=== PATIENT | male | born 1945 | race Caucasian/White ===

== ENCOUNTER 2020-02-18 14:49 | Outpatient (CLI) | payer MEDICARE | END 2020-02-18 14:50 | disposition critical access hospital (66) | LOC: EMS 14:49 | PROVIDERS: ATTEND Surgery | DX: R40.20 Unspecified coma (principal) | CPT/HCPCS: A0425; A0433 ==

== ENCOUNTER 2020-02-18 15:06 | Inpatient (IN) | payer MEDICARE ==
[2020-02-18] MEDS ORDERED: SODIUM CHLORIDE 0.9% 1,000 ML IV STA ×3 (15:12→16:23)
--- NOTE | 2020-02-18 15:15 | ED Physician Documentation ---
PD HPI ALTERED MENTAL STATUS - Stated complaint Stated Complaint: UNRESPONSIVE - History obtained from History obtained from: EMS - Additional information Additional information: This is a gentleman who was brought in by ambulance. Reportedly was last known normal last night, his roommate found him around 11 AM obtunded but reportedly just thought he was sleeping. Ambulance was called. They noted him to be obtunded. Vomiting. Blood sugar was in the 190s. They tried Narcan with no effect. On arrival he is intubated and unresponsive. No other history is available. No reported evidence of trauma. He did get etomidate and succinylcholine for the intubation and also received some Versed on route. No long-acting paralytics were given. Review of Systems Unable to obtain: AMS PD PAST MEDICAL HISTORY - Allergies Allergies/Adverse Reactions: Allergies Allergy/AdvReac Type Severity Reaction Status Date / Time Unable to Assess Allergy Verified 02/18/20 15:24 PD ED PE NORMAL - Vitals Vital signs reviewed: Yes - General General: Other (He is intubated and unresponsive with small pupils, no spontaneous respiratory activity.) - HEENT HEENT: Other (Small pupils, symmetric; Emesis around the mouth) - Cardiac Cardiac: RRR, No murmur - Respiratory Respiratory: Clear bilaterally - Abdomen Abdomen: Non tender - Back Back: No CVA TTP, No spinal TTP - Derm Derm: Normal color, Warm and dry - Extremities Extremities: No edema, No calf tenderness / cord - Neuro Eye Opening: None Motor: None Verbal: None GCS Score: 3 Results - Vitals Vitals: Vital Signs - 24 hr 02/18/20 02/18/20 02/18/20 15:05 15:26 15:35 Temperature 32.4 C L 32.4 C L Heart Rate 60 L 57 L 56 L Respiratory 20 L 20 L 14 L Rate Blood Pressure 104/79 H 93/48 84/44 O2 Saturation 100 100 100 02/18/20 02/18/20 02/18/20 15:39 15:54 16:14 Temperature 32.4 C L 32.3 C L 32 C L Heart Rate 56 L 55 L 57 L Respiratory 17 L 26 L 23 L Rate Blood Pressure 94/48 89/46 89/71 H O2 Saturation 100 100 100 02/18/20 02/18/20 02/18/20 16:15 16:26 16:30 Temperature 31.9 C L 31.9 C L Heart Rate 52 L 52 L 53 L Respiratory 27 L 28 L Rate Blood Pressure 87/41 90/39 O2 Saturation 100 100 02/18/20 02/18/20 02/18/20 16:45 17:00 17:08 Temperature 31.8 C L 31.8 C L Heart Rate 52 L 53 L 52 L Respiratory 28 L 29 L 27 L Rate Blood Pressure 86/45 89/44 101/47 H O2 Saturation 100 100 100 02/18/20 02/18/20 02/18/20 17:15 17:29 17:30 Temperature 31.8 C L 31.9 C L Heart Rate 52 L 52 L 52 L Respiratory 28 H 27 H 28 H Rate Blood Pressure 104/50 L 95/46 L 95/46 L O2 Saturation 100 99 99 02/18/20 17:35 Temperature 32 C L Heart Rate 56 L Respiratory 28 H Rate Blood Pressure 91/47 L O2 Saturation 99 Oxygen O2 Source Mechanical ventilator - EKG (time done) 1517 Rate: Rate (enter#) (60) Rhythm: NSR Kress: Normal Intervals: Other (LAFB) QRS: Normal Ischemia: Non specific changes - Labs Labs: Laboratory Tests 02/18/20 02/18/20 02/18/20 15:19 15:30 15:30 WBC 8.0 L RBC 4.80 Hgb 14.8 L Hct 46.1 MCV 96.0 MCH 30.8 MCHC 32.1 RDW 12.4 Plt Count 293 MPV 10.0 Neut # (Auto) 7.0 Lymph # (Auto) 0.6 L [place] # (Auto) 0.5 Eos # (Auto) 0.0 Baso # (Auto) 0.0 Absolute Nucleated RBC 0.00 Nucleated RBC % 0.0 PT INR Bld Gas Analysis Time Sample Site ABG pH ABG pCO2 ABG pO2 ABG HCO3 ABG Total CO2 ABG O2 Saturation ABG Base Excess Reji Test VBG pH VBG pCO2 VBG pO2 VBG HCO3 VBG Total CO2 VBG O2 Saturation VBG Base Excess Respiration Rate O2 Delivery Device Vent Mode FiO2 Tidal Volume PEEP Pressure Support Vent Sodium 139 Potassium 5.4 Chloride 104 Carbon Dioxide 11 L* Anion Gap 24.0 H BUN 26 H Creatinine 2.0 H Glucose 187 Lactic Acid Calcium 8.0 L Magnesium Total Bilirubin 0.8 L AST 79 H ALT 40 Alkaline Phosphatase 80 Total Creatine Kinase 5250 H* Total Protein 7.5 Albumin 3.2 Globulin 4.3 H Albumin/Globulin Ratio 0.7 L TSH Urine Color YELLOW Urine Clarity CLEAR Urine pH 6.0 Ur Specific [place] 1.015 Urine Protein TRACE Urine Glucose (UA) 250 H Urine Ketones NEGATIVE Urine Occult Blood LARGE H Urine Nitrite NEGATIVE Urine Bilirubin NEGATIVE Urine Urobilinogen 0.2 (NORMAL) Ur Leukocyte Esterase NEGATIVE Urine RBC 0-5 Urine WBC 0-3 Ur Epithelial Cells RARE Transitional Ur Squamous Epith Cells NONE SEEN Urine Bacteria None Seen Ur Microscopic Review INDICATED Urine Culture Comments INDICATED Nasal Adenovirus (PCR) Nasal B. parapertussis DNA (PCR) Nasal Coronavir 229E PCR Nasal Coronavir HKU1 PCR Nasal Coronavir NL63 PCR Nasal Coronavir OC43 PCR Nasal Enterovir/Rhinovir PCR Nasal Influenza B PCR Nasal Influenza A PCR Nasal Parainfluen 1 PCR Nasal Parainfluen 2 PCR Nasal Parainfluen 3 PCR Nasal Parainfluen 4 PCR Nasal RSV (PCR) Nasal B.pertussis DNA PCR Nasal C.pneumoniae (PCR) Thomas Human Metapneumo PCR Nasal M.pneumoniae (PCR) Nasal SARS-CoV-2 (PCR) Urine Opiates Screen NEGATIVE Ur Oxycodone Screen NEGATIVE Urine Methadone Screen NEGATIVE Ur Propoxyphene Screen NEGATIVE Ur Barbiturates Screen NEGATIVE Ur Tricyclics Screen NEGATIVE Ur Phencyclidine Scrn NEGATIVE Ur Amphetamine Screen NEGATIVE U Methamphetamines Scrn NEGATIVE U Benzodiazepines Scrn NEGATIVE Urine Cocaine Screen NEGATIVE U Cannabinoids Screen NEGATIVE Ethyl Alcohol < 5.0 02/18/20 02/18/20 02/18/20 15:30 15:30 15:30 WBC RBC Hgb Hct MCV MCH MCHC RDW Plt Count MPV Neut # (Auto) Lymph # (Auto) [place] # (Auto) Eos # (Auto) Baso # (Auto) Absolute Nucleated RBC Nucleated RBC % PT INR Bld Gas Analysis Time Sample Site ABG pH ABG pCO2 ABG pO2 ABG HCO3 ABG Total CO2 ABG O2 Saturation ABG Base Excess Reji Test VBG pH 7.010 L VBG pCO2 37.0 L VBG pO2 133.1 H VBG HCO3 9.1 L VBG Total CO2 10.3 L VBG O2 Saturation 97.8 H VBG Base Excess -21.4 L Respiration Rate O2 Delivery Device Vent Mode FiO2 Tidal Volume PEEP Pressure Support Vent Sodium Potassium Chloride Carbon Dioxide Anion Gap BUN Creatinine Glucose Lactic Acid 7.2 H* Calcium Magnesium Total Bilirubin AST ALT Alkaline Phosphatase Total Creatine Kinase Total Protein Albumin Globulin Albumin/Globulin Ratio TSH 2.30 Urine Color Urine Clarity Urine pH Ur Specific [place] Urine Protein Urine Glucose (UA) Urine Ketones Urine Occult Blood Urine Nitrite Urine Bilirubin Urine Urobilinogen Ur Leukocyte Esterase Urine RBC Urine WBC Ur Epithelial Cells Ur Squamous Epith Cells Urine Bacteria Ur Microscopic Review Urine Culture Comments Nasal Adenovirus (PCR) Nasal B. parapertussis DNA (PCR) Nasal Coronavir 229E PCR Nasal Coronavir HKU1 PCR Nasal Coronavir NL63 PCR Nasal Coronavir OC43 PCR Nasal Enterovir/Rhinovir PCR Nasal Influenza B PCR Nasal Influenza A PCR Nasal Parainfluen 1 PCR Nasal Parainfluen 2 PCR Nasal Parainfluen 3 PCR Nasal Parainfluen 4 PCR Nasal RSV (PCR) Nasal B.pertussis DNA PCR Nasal C.pneumoniae (PCR) Thomas Human Metapneumo PCR Nasal M.pneumoniae (PCR) Nasal SARS-CoV-2 (PCR) Urine Opiates Screen Ur Oxycodone Screen Urine Methadone Screen Ur Propoxyphene Screen Ur Barbiturates Screen Ur Tricyclics Screen Ur Phencyclidine Scrn Ur Amphetamine Screen U Methamphetamines Scrn U Benzodiazepines Scrn Urine Cocaine Screen U Cannabinoids Screen Ethyl Alcohol 02/18/20 02/18/20 02/18/20 15:30 15:40 15:49 WBC RBC Hgb Hct MCV MCH MCHC RDW Plt Count MPV Neut # (Auto) Lymph # (Auto) [place] # (Auto) Eos # (Auto) Baso # (Auto) Absolute Nucleated RBC Nucleated RBC % PT 17.0 H INR 1.6 H Bld Gas Analysis Time Sample Site ABG pH ABG pCO2 ABG pO2 ABG HCO3 ABG Total CO2 ABG O2 Saturation ABG Base Excess Reji Test VBG pH VBG pCO2 VBG pO2 VBG HCO3 VBG Total CO2 VBG O2 Saturation VBG Base Excess Respiration Rate O2 Delivery Device Vent Mode FiO2 Tidal Volume PEEP Pressure Support Vent Sodium Potassium Chloride Carbon Dioxide Anion Gap BUN Creatinine Glucose Lactic Acid Calcium Magnesium 2.6 Total Bilirubin AST ALT Alkaline Phosphatase Total Creatine Kinase Total Protein Albumin Globulin Albumin/Globulin Ratio TSH Urine Color Urine Clarity Urine pH Ur Specific [place] Urine Protein Urine Glucose (UA) Urine Ketones Urine Occult Blood Urine Nitrite Urine Bilirubin Urine Urobilinogen Ur Leukocyte Esterase Urine RBC Urine WBC Ur Epithelial Cells Ur Squamous Epith Cells Urine Bacteria Ur Microscopic Review Urine Culture Comments Nasal Adenovirus (PCR) NOT DETECTED Nasal B. parapertussis DNA (PCR) NOT DETECTED Nasal Coronavir 229E PCR NOT DETECTED Nasal Coronavir HKU1 PCR NOT DETECTED Nasal Coronavir NL63 PCR NOT DETECTED Nasal Coronavir OC43 PCR NOT DETECTED Nasal Enterovir/Rhinovir PCR NOT DETECTED Nasal Influenza B PCR NOT DETECTED Nasal Influenza A PCR NOT DETECTED Nasal Parainfluen 1 PCR NOT DETECTED Nasal Parainfluen 2 PCR NOT DETECTED Nasal Parainfluen 3 PCR NOT DETECTED Nasal Parainfluen 4 PCR NOT DETECTED Nasal RSV (PCR) NOT DETECTED Nasal B.pertussis DNA PCR NOT DETECTED Nasal C.pneumoniae (PCR) NOT DETECTED Thomas Human Metapneumo PCR NOT DETECTED Nasal M.pneumoniae (PCR) NOT DETECTED Nasal SARS-CoV-2 (PCR) NOT DETECTED Urine Opiates Screen Ur Oxycodone Screen Urine Methadone Screen Ur Propoxyphene Screen Ur Barbiturates Screen Ur Tricyclics Screen Ur Phencyclidine Scrn Ur Amphetamine Screen U Methamphetamines Scrn U Benzodiazepines Scrn Urine Cocaine Screen U Cannabinoids Screen Ethyl Alcohol 02/18/20 17:03 WBC RBC Hgb Hct MCV MCH MCHC RDW Plt Count MPV Neut # (Auto) Lymph # (Auto) [place] # (Auto) Eos # (Auto) Baso # (Auto) Absolute Nucleated RBC Nucleated RBC % PT INR Bld Gas Analysis Time 1705 Sample Site RIGHT RADIAL ABG pH 7.04 L* ABG pCO2 30 ABG pO2 491 H* ABG HCO3 7.9 L ABG Total CO2 8.8 L* ABG O2 Saturation 99 H ABG Base Excess -21.6 L Reji Test POSITIVE VBG pH VBG pCO2 VBG pO2 VBG HCO3 VBG Total CO2 VBG O2 Saturation VBG Base Excess Respiration Rate 16 O2 Delivery Device VENTILATOR Vent Mode SIMV FiO2 1.00 Tidal Volume 500 PEEP 5 Pressure Support Vent 10 Sodium Potassium Chloride Carbon Dioxide Anion Gap BUN Creatinine Glucose Lactic Acid Calcium Magnesium Total Bilirubin AST ALT Alkaline Phosphatase Total Creatine Kinase Total Protein Albumin Globulin Albumin/Globulin Ratio TSH Urine Color Urine Clarity Urine pH Ur Specific [place] Urine Protein Urine Glucose (UA) Urine Ketones Urine Occult Blood Urine Nitrite Urine Bilirubin Urine Urobilinogen Ur Leukocyte Esterase Urine RBC Urine WBC Ur Epithelial Cells Ur Squamous Epith Cells Urine Bacteria Ur Microscopic Review Urine Culture Comments Nasal Adenovirus (PCR) Nasal B. parapertussis DNA (PCR) Nasal Coronavir 229E PCR Nasal Coronavir HKU1 PCR Nasal Coronavir NL63 PCR Nasal Coronavir OC43 PCR Nasal Enterovir/Rhinovir PCR Nasal Influenza B PCR Nasal Influenza A PCR Nasal Parainfluen 1 PCR Nasal Parainfluen 2 PCR Nasal Parainfluen 3 PCR Nasal Parainfluen 4 PCR Nasal RSV (PCR) Nasal B.pertussis DNA PCR Nasal C.pneumoniae (PCR) Thomas Human Metapneumo PCR Nasal M.pneumoniae (PCR) Nasal SARS-CoV-2 (PCR) Urine Opiates Screen Ur Oxycodone Screen Urine Methadone Screen Ur Propoxyphene Screen Ur Barbiturates Screen Ur Tricyclics Screen Ur Phencyclidine Scrn Ur Amphetamine Screen U Methamphetamines Scrn U Benzodiazepines Scrn Urine Cocaine Screen U Cannabinoids Screen Ethyl Alcohol - Rads (name of study) CT head and C-spine Radiology: EMP read contemporaneously (degenerative changes without obvious acute disease.) 1 view chest x-ray Radiology: EMP read contemporaneously (Endotracheal tube 7 cm above the sandhya, right IJ line in the inferior superior vena cava. Question of appropriate placement of the gastric tube.) Procedures - Central Line Central Line Preparation: Unable to obtain consent, Time out completed, Ultrasound used, Sterile prep and drape Central line location: Right IJ Central line type: Triple lumen Central line aftercare: Chlorhexidine disc placed, Secured, Placement confirmed, No complications, Pt tolerated well PD MEDICAL DECISION MAKING - ED course ED course: This is a middle to older gentleman who presents by ambulance obtunded of unclear etiology. Intubated prior to arrival. I placed a central line. Work- up demonstrates no evidence of ischemia or head bleed on CT. Chest x-ray okay. Urine without signs of infection. He is profoundly Acidotic. He was hydrated aggressively with 3 L of crystalloid. Remained hypotensive and Levophed was begun. Asked social work to find next of kin. EKG is nonischemic. Spoke with Dr. Levy for admission at 4:49 PM. Also rewarming measures were undertaken. - Critical Care Time(min): 50 Time Includes: Direct patient care, Reassess patient, Document care, Coordinate care, Medical consult Data interpretation: Labs, Pulse ox Procedures included in critical care time: Peripheral IV Procedures excluded from critical care time: Central IV, EKG Departure - Departure Disposition: 66 [facility] DC/Xfer Clinical Impression: Acidosis, lactic Respiratory failure Qualifiers: Chronicity: acute Respiratory failure complication: hypoxia and hypercapnia Qualified Code(s): J96.01 - Acute respiratory failure with hypoxia Rhabdomyolysis Qualifiers: Rhabdomyolysis type: non-traumatic Qualified Code(s): M62.82 - Rhabdomyolysis Coma Qualifiers: Coma depth: Val coma 3-8 Coma timing: in the field (EMT or ambulance) Qualified Code(s): R40.2431 - [place] coma scale score 3-8, in the field [EMT or ambulance] Condition: Critical
[2020-02-18 15:27] LABS: MUDS CUTOFF CONCENTRATIONS CUTOFF CONC BELOW:
[2020-02-18 15:31] LABS: BILIRUBIN,URINE NEGATIVE (NEGATIVE); GLUCOSE, URINE (UA) 250 mg/dL (NEGATIVE); KETONES,URINE (UA) NEGATIVE (NEGATIVE); LEUKOCYTE ESTERASE, URINE NEGATIVE (NEGATIVE); NITRITE,URINE NEGATIVE (NEGATIVE); OCCULT BLOOD,URINE LARGE (NEGATIVE); PROTEIN,URINE TRACE mg/dL (NEGATIVE); UROBILINOGEN,URINE 0.2 (NORMAL) E.U./dL (NORMAL)
[2020-02-18 15:32] LABS: CLARITY,URINE CLEAR (CLEAR)
[2020-02-18 15:40] LABS: BASOPHILS % (AUTO) 0.1 %; EOSINOPHILS % (AUTO) 0.1 %; HGB - HEMOGLOBIN 14.8 g/dL (15.0-24.0); LYMPHOCYTES # (AUTO) 0.6 10^3/uL (2.5-10.5); LYMPHOCYTES % (AUTO) 7.1 %; MEAN CORPUSCULAR HEMOGLOBIN 30.8 pg (30.0-42.0); MEAN CORPUSCULAR HGB CONC 32.1 g/dL (32.0-36.0); MONOCYTES # (AUTO) 0.5 10^3/uL (0.0-3.5); MONOCYTES % (AUTO) 5.6 %; NEUTROPHILS % (AUTO) 86.6 %; PLT - PLATELET COUNT 293 10^3/uL (130-450); RED CELL DISTRIBUTION WIDTH 12.4 % (12.0-15.0)
[2020-02-18 15:45] LABS: AMPHETAMINE SCREEN,URINE NEGATIVE (NEGATIVE); BENZODIAZEPINES SCREEN, URINE NEGATIVE (NEGATIVE); COCAINE SCREEN URINE NEGATIVE (NEGATIVE); METHADONE SCREEN, URINE NEGATIVE (NEGATIVE); METHAMPHETAMINES SCREEN, URINE NEGATIVE (NEGATIVE); OPIATE SCREEN, URINE NEGATIVE (NEGATIVE); OXYCODONE SCREEN, URINE NEGATIVE (NEGATIVE); PROPOXYPHENE SCREEN, URINE NEGATIVE (NEGATIVE); TRICYCLIC ANTIDEPRESSANT,URINE NEGATIVE (NEGATIVE)
[2020-02-18 15:47] LABS: VBG BASE EXCESS -21.4 mmol/L (-2 - +2); VBG PH 7.01 (7.31-7.41); VBG PO2 133.1 mmHg (25-47); VBG TOTAL CO2 10.3 mmol/L (24-29)
[2020-02-18 15:49] LABS: BACTERIA,URINE None Seen /HPF (None Seen); EPITHELIAL CELLS,UR RARE Transitional /HPF (<= Few); RBC,URINE 0-5 /HPF (0-5); SQUAMOUS EPITHELIAL CELL,UR NONE SEEN (<= Few)
[2020-02-18 16:09] LABS: INR 1.6 (0.8-1.2)
--- NOTE | 2020-02-18 16:10 | XRAY Report ---
PROCEDURE: Chest 1 View X-Ray INDICATIONS: resp failure TECHNIQUE: One view of the chest was acquired. COMPARISON: None available FINDINGS: Surgical changes and devices: An endotracheal tube is seen, with the tip 7 cm above the sandhya. A ri ght-sided central line is seen, with the tip overlying the mid to inferior aspect of the superior ananya a cava, approximately 4 7 m above the cavoatrial junction. There is also a gastric tube seen, with th e tip not well seen on this study, yet potentially coiled over the gastroesophageal junction. Lungs and pleura: On the supine study, no large pneumothorax or large pleural effusions can be seen. No focal infiltrates are detected. Mediastinum: Mediastinal contours appear normal. Heart size is normal. Bones and chest wall: No suspicious bony lesions. Overlying soft tissues appear unremarkable. IMPRESSION: No acute abnormality is seen on this supine study. The tip of the endotracheal tube is seen 7 cm above the sandhya. The tip of the right-sided central line is seen overlying the mid to inferior aspect of the superior vena cava. The tip of the gastric tube is not well seen, it is potentially coiled overlying the gastroesophageal junction. Please consider short-term follow-up. Reviewed by: Chris Huggins MD on 02/18/2020 3:08 PM [facility] Approved by: Chris Huggins MD on 02/18/2020 3:08 PM [facility] Station ID: [id number]
[2020-02-18] MEDS ORDERED: fentaNYL 100 MCG/2 ML VIAL IVP STA (16:14)
[2020-02-18 16:17] LABS: ALBUMIN 3.2 g/dL (3.2-5.5); ALBUMIN/GLOBULIN RATIO 0.7 (1.0-2.2); ALKALINE PHOSPHATASE 80 IU/L (50-400); ALT ALANINE AMINOTRANSFERASE 40 IU/L (10-60); AST ASPARTATE AMINOTRANSFERASE 79 IU/L (10-42); BILIRUBIN,TOTAL 0.8 mg/dL (1.3-11.3); BUN - BLOOD UREA NITROGEN 26 mg/dL (6-20); CHLORIDE 104 mmol/L (101-111); GLUCOSE 187 mg/dL; SODIUM 139 mmol/L (135-145); TOTAL PROTEIN 7.5 g/dL (6.7-8.2)
[2020-02-18 16:18] LABS: CARBON DIOXIDE - CO2 11 mmol/L (21-32); CK- CREATINE KINASE 5250 IU/L (22-269)
--- NOTE | 2020-02-18 16:21 | CT Report ---
PROCEDURE: CERVICAL SPINE WO INDICATIONS: obtunded TECHNIQUE: Noncontrast 3 mm thick sections acquired from the skull base to the T4 level. Sagittal and coronal r eformats were then constructed. For radiation dose reduction, the following was used: automated exp osure control, adjustment of mA and/or kV according to patient size. COMPARISON: Correlation is made with the accompanying head CT as well as the chest x-ray, 02/18/2020 FINDINGS: Image quality: Excellent. Bones: No fractures or dislocations. Visualized superior ribs are intact. Degenerative changes are seen, with moderate to severe disc space narrowing at C5-C6 and C6-C7. Focal degenerative change can also be seen involving the C1-C2 interface anteriorly. Milder degenerative c hanges are seen elsewhere. Soft tissues: Prevertebral soft tissues are normal in thickness. No paravertebral hematomas. No ap ical pneumothoraces. The patient is intubated, with the tip within the distal trachea. A orogastric tube is seen, with the tip within the esophagus. There is a right-sided central line, with the tip within the venous system . IMPRESSION: Cervical spine degenerative changes, without a fracture seen. Tubes and lines are seen. Reviewed by: Chris Huggins MD on 02/18/2020 3:20 PM [facility] Approved by: Chris Huggins MD on 02/18/2020 3:20 PM [facility] Station ID: [id number]
--- NOTE | 2020-02-18 16:22 | CT Report ---
PROCEDURE: HEAD WO INDICATIONS: obtunded TECHNIQUE: Noncontrast 4.5 mm thick angled axial sections acquired from the foramen magnum to the vertex. For r adiation dose reduction, the following was used: automated exposure control, adjustment of mA and/or kV according to patient size. COMPARISON: Correlation is made with the accompanying chest x-ray and cervical spine CT, 02/18/2020 FINDINGS: Image quality: Excellent. CSF spaces: Basal cisterns are patent. No extra-axial fluid collections. Ventricles are normal in size and shape. Brain: No midline shift. No intracranial masses or hemorrhage. Walker-white matter interface is norm al. Skull and face: Calvarium and visualized facial bones are intact, without suspicious lesions. Sinuses: Visualized sinuses and mastoids are clear. IMPRESSION: No intracranial hemorrhage is seen. No significant intracranial abnormality is seen. Reviewed by: Chris Huggins MD on 02/18/2020 3:21 PM [facility] Approved by: Chris Huggins MD on 02/18/2020 3:21 PM [facility] Station ID: [id number]
[2020-02-18] MEDS ORDERED: LACTATED RINGERS 1,000 ML IV STA (16:34)
[2020-02-18 17:00] LABS: C. PNEUMONIAE- RESP PCR PANEL NOT DETECTED
[2020-02-18 17:09] LABS: ABG BASE EXCESS -21.6 mmol/L (-4.0-2.0); ABG HCO3 7.9 mmol/L (16.0-24.0); ABG OXYGEN SATURATION 99 % (94-98); ABG PCO2 30 mmHg (27-41); ALLEN TEST POSITIVE
[2020-02-18 17:10] LABS: ABG PH 7.04 (7.29-7.45); ABG PO2 491 mmHg (54-95); ABG TCO2 8.8 MMOL/L (20.0-28.0)
[2020-02-18] MEDS ORDERED: SODIUM CHLORIDE 0.9% 500 ML IV ONE ×2 (18:55→23:47)
[2020-02-18 19:57] LABS: ABG PCO2 26 mmHg (34-45); ABG PO2 105 mmHg (80-100)
[2020-02-18 19:58] LABS: ABG BASE EXCESS -22.1 mmol/L (-2.0-3.0); ABG OXYGEN SATURATION 97 % (94-98)
[2020-02-18 20:01] LABS: ABG PH 7.05 (7.35-7.45); ABG TCO2 7.8 MMOL/L (21.0-29.0)
--- NOTE | 2020-02-18 20:55 | XRAY Report ---
PROCEDURE: Chest for Line Placement INDICATIONS: Line placement TECHNIQUE: One view of the chest was acquired. COMPARISON: 02/18/2020 chest radiograph FINDINGS: Surgical changes and devices: Right IJ central line projects over the upper SVC. Advancement may be n eeded depending on the clinical application of this line. Endotracheal and enteric tubes are in appro priate position. Lungs and pleura: No pleural effusions or pneumothorax. Lungs are clear. Mediastinum: Mediastinal contours appear normal. Heart size is normal. Bones and chest wall: No suspicious bony lesions. Overlying soft tissues appear unremarkable. IMPRESSION: Right IJ central line projects over the upper SVC. Reviewed by: Zeus Steward MD on 02/18/2020 8:53 PM PST Approved by: Zeus Steward MD on 02/18/2020 8:53 PM PST Station ID: [id number]
[2020-02-18] MEDS ORDERED: SODIUM CHLORIDE 0.9% 500 ML IV PRN (20:56)
[2020-02-18] MEDS: PROPOFOL 500 MG/50 ML 500 MG/50 ML VIAL IV SCH (20:57)
--- NOTE | 2020-02-18 21:05 | CONSULTATION NOTE ---
Referring Provider Name of Referring Provider:: Dr. Levy Consult Date: 02/18/20 Chief Complaint - Chief Complaint Chief Complaint: Shock/Pressors; requesting Central & Arterial lines History of Present Illness - Admitted From Admitted From:: Home - History Obtained From Records Reviewed: EMR History obtained from: EMR and Hospitalist Exam Limitations: Intubated - History of Present Illness HPI Comment/Other: Please see hospitalist note. Patient found unresponsive by friend, resuscitated and transferred to the ICU intubated and currently on pressors. Hospitalist service requesting central venous catheter placement after emergency placed central line was inadvertently dislodged. Moreover arterial line placement requested for continued hemodynamic monitoring. History - Past Medical History Other Past Medical History: pt unable to respond at this time Meds/Allgy - Allergies Allergies/Adverse Reactions: Allergies Allergy/AdvReac Type Severity Reaction Status Date / Time Unable to Assess Allergy Verified 02/18/20 15:24 Review of Systems - All Other Systems All Other Systems: reports: Other (Unable to ascertain given the patient's unresponsiveness; intubated and on pressors.) Exam - Vital Signs Vital Signs: Vital Signs x48h Temp Pulse Pulse Resp BP BP Pulse Ox 02/18/20 19:15 55 L 02/18/20 19:00 32.8 C L 55 L 27 H 95/40 L 96 02/18/20 18:55 54 L 27 H 94/47 L 98 02/18/20 18:40 32.5 C L 52 L 27 H 95/43 L 98 02/18/20 18:34 56 L 27 H 86/44 L 98 02/18/20 18:15 57 L 29 H 73/43 L 99 02/18/20 18:05 32.3 C L 53 L 29 H 93/40 L 97 02/18/20 17:50 32.1 C L 55 L 26 H 92/42 L 98 02/18/20 17:42 32 C L 54 L 29 H 95/42 L 99 02/18/20 17:35 32 C L 56 L 28 H 91/47 L 99 02/18/20 17:30 52 L 28 H 95/46 L 99 02/18/20 17:29 31.9 C L 52 L 27 H 95/46 L 99 02/18/20 17:15 31.8 C L 52 L 28 H 104/50 L 100 02/18/20 17:08 31.8 C L 52 L 27 L 101/47 H 100 02/18/20 17:00 31.8 C L 53 L 29 L 89/44 100 02/18/20 16:45 52 L 28 L 86/45 100 02/18/20 16:30 31.9 C L 53 L 28 L 90/39 100 02/18/20 16:26 31.9 C L 52 L 27 L 87/41 100 02/18/20 16:15 52 L 02/18/20 16:14 32 C L 57 L 23 L 89/71 H 100 02/18/20 15:54 32.3 C L 55 L 26 L 89/46 100 02/18/20 15:39 32.4 C L 56 L 17 L 94/48 100 02/18/20 15:35 56 L 14 L 84/44 100 02/18/20 15:26 32.4 C L 57 L 20 L 93/48 100 02/18/20 15:05 32.4 C L 60 L 20 L 104/79 H 100 - Physical Exam General Appearance: positive: Other (Unresponsive with endotracheal tube in place) Eyes Bilateral: positive: Other (Deferred) ENT: positive: Other (Place for orogastric tube by me given tube placed by ER was coiled within the esophagus. This was ultimately confirmed for appropriate placement with postprocedural chest x-ray confirming line placement. Positive return of feculent/bilious output.) Respiratory: positive: Wheezes, Rales, Rhonchi Abdomen: positive: No distention, Other (Borborygmi noted in the left upper quadrant after placement of orogastric tube by me.) Extremities: positive: Other (Thready bilateral radial pulses. Palpable femoral pulses with good capillary refill bilateral lower extremities.) Conclusion/Plan - Diagnosis Diagnosis: 1. Shock, necessitating pressors. 2. Hemodynamically ability. 3. Multiorgan system failure. 4. Need for reliable central venous access and hemodynamic monitoring - Plan Plan: Given ongoing pressor support and need for reliable hemodynamic monitoring, and the urgent nature of this intervention, will proceed with ultrasound-guided internal jugular venous access as well as attempted radial arterial line placement. Informed consent was not able to be obtained secondary to the patient's unresponsiveness. No family was available from home consent could be obtained. Please see procedural reports under separate cover. Please note that all lines were confirmed for placement where applicable radiographically including the orogastric tube that was placed by me which was noted within the stomach. Please note that voice recognition software was used to transcribe this note and inadvertent errors might persist in spite of review and editing. I am obliged to you for your attention. I am thankful to you for allowing me to participate with you in this care of this patient. - Lab Results Fish Bones: 02/19/20 11:31 02/19/20 11:31
--- NOTE | 2020-02-18 21:13 | OPERATIVE REPORT ---
Operative Report - General Admit Date: 02/18/20 Procedure Date: 02/18/20 Planned Procedure: Procedure planned 1. Ultrasound guided arterial access, right radial 2. Right radial arterial line placement Pre-Op Diagnosis: Shock; Pressor Support; Need for HD monitoring Procedure Performed: Procedure performed: 1. Attempted ultrasound guided arterial access, right radial 2. Right femoral arterial access 3. Right femoral arterial line placement 4. Modified seldinger technique Post Op Diagnosis: SAME; Successful Right femoral arterial line placement - Procedure Note Primary Surgeon: Param Secondary Surgeon: RAYMOND Anesthesia Provider: NONE Anesthesia Technique: General ET tube Pathology: NONE Indications: See consultation Findings: See below Complications: NONE - Other Other Information/Narrative: Radial and FEMORAL arterial line catheter placement Procedure performed: 1. Attempted ultrasound guided right then left radial arterial catheter placement 2. Successful placement right femoral arterial catheter placement INTRAOPERATIVE FINDINGS: First the right hand was performed for Reji test with no concern for incomplete/incompetent palmar arch. No palpable radial pulse was ascertained, ultrasound was attempted which did indeed show a vasoconstricted right radial artery which was attempted however unsuccessfully accessed after which this was deferred following single attempt. The right side was thereafter evaluated however this similarly was confirmed for Reji's test with no obvious compromise of the palmar arch however a vasoconstricted right radial artery was noted and given the patient's active shock, on pressor support, we deferred and further attempt at radial access on the right at this time, cap refill was intact bilateral upper extremities. Thereafter we proceeded with RIGHT femoral arterial line access using a 22 Italian kit by modified Seldinger technique with single stick and no complication. Good waveform achieved. Preoperative diagnosis: 1. Hypovolemic shock 2. Pressor support 3. Need for additional Hemodynamic monitoring. Preoperative diagnosis: 1. Hypovolemic shock 2. Pressor support 3. Need for additional Hemodynamic monitoring. 4. Successful placement of RIGHT FEMORAL arterial line. PROCEDURAL REPORT Please see above for attempts made for the left and right upper extremity which were deferred. Thereafter we opted to proceed with the RIGHT femoral artery for access given the patient who is in extremis with hypotension vasoconstriction and under resuscitation as noted on venous access and ultrasound guidance. At this time we spoke to the obtain consent. Time out was called and a greed to by all in the room. Please note secondary to the urgency of the procedure written/verbal informed consent was NOT obtained and indications given exigency and presentation were announced and witnessed by nurse attendant in room. The ultrasound probe was draped with a sterile sleeve. Pulsatile structures were noted for RIGHT femoral artery. We proceeded to access the right femoral artery by ultrasound guidance with positive arterial blood return. The catheter was easily placed over the wire by modified Seldinger technique. Appropriate arterial waveform was appreciated with no complication. There was no complication after single for RIGHT femoral arterial access. At the conclusion of this case we reevaluated bilateral upper extremities given the significant vasoconstriction of the right radial artery and attempted access and patient was noted for good cap refill with no complication to both hands at the conclusion of this procedure. The patient tolerated the procedure well for which there was no complication. All counts for sponges, needles, instruments were correct at the conclusion of this operative intervention. Please note that voice recognition software was used to transcribe this note and inadvertent errors might persist in spite of review and editing. I am obliged to you for your attention. I am thankful to you for allowing me to participate with you in this care of this patient.
[2020-02-18] MEDS ORDERED: SODIUM CHLORIDE 0.9% 1,000 ML IV ONE (21:20)
--- NOTE | 2020-02-18 21:20 | OPERATIVE REPORT ---
Operative Report - General Admit Date: 02/18/20 Procedure Date: 02/18/20 Planned Procedure: 1. Right internal jugular venous access 2. Ultrasound-guided vascular access 3. Modified Seldinger technique 4. Right internal jugular central venous TLC placement Pre-Op Diagnosis: Shock; pressor support; need for central venous access Procedure Performed: 1. Right internal jugular venous access 2. Ultrasound-guided vascular access 3. Modified Seldinger technique 4. Right internal jugular central venous TLC placement Post Op Diagnosis: Same; successful placement of right internal jugular central venous TLC - Procedure Note Primary Surgeon: Param Secondary Surgeon: RAYMOND Anesthesia Provider: NONE Anesthesia Technique: General ET tube Indications: See consult note. Findings: See below. Internal jugular relatively collapsed requiring Trendelenburg to cannulate, no complication. Complications: NONE - Other Other Information/Narrative: INTRAOPERATIVE FINDINGS: Right internal jugular was noted ultrasonographically. It was passed for the guidewire without any complication, which was confirmed by ultrasound imaging. The catheter ultimately was placed at the junction between the SVC and the atria of the atriocaval junction without any complication as confirmed by postoperative x-ray. Again, postoperative radiography confirmed placement. Patient tolerated the procedure well for which there was no complication. The port flushed easily, it aspirated well across all 3 ports. Preoperative diagnosis: 1. Hypovolemic shock 2. Pressor support 3. Need for additional IV access Postoperative diagnosis: 1. Hypovolemic shock 2. Pressor support 3. Need for additional IV access 4. Successful placement of right internal jugular triple-lumen catheter PROCEDURAL REPORT The patient was prepped for Right neck and chest in the usual sterile fashion. Time out was called and agreed to by all in the room. Please note secondary to the urgency of the procedure verbal/written informed consent was NOT obtained as patient was intubated and unresponsive and there were no family to contact; however we did indeed reiterate and express the exigency of the circumstance prior to proceeding, as witnessed by nurse attendant in room. The ultrasound probe was draped with a sterile sleeve, and internal jugular was noted. The patient was placed in Trendelenburg, and the vein was cannulated using the introducer needle without any complication. There was venous return. The wire wa s easily passed through the introducer needle without any complication. The wire placement was confirmed Ultrasonographically. At this time, the wire was secured after the needle was removed. Thereafter, we dilated the tract after having incise the skin to accommodate. This was achieved without any complication. The triple-lumen catheter was already flushed and once the dilator was removed over the wire, the triple-lumen catheter was placed and appropriately positioned anticipating tip at the atriocaval junction. We had easy return of blood x3 ports which flushed without any complication as well. Please note the patient was performed for postoperative x-ray which confirmed placement at the atriocaval junction. The patient tolerated the procedure well for which there was no complication. All counts for sponges, needles, instruments were correct at the conclusion of this operative intervention. Post-op XR was reviewed without any deviation.
[2020-02-18] MEDS ORDERED: FOLIC ACID 5 MG/1 ML 10ML MDV ONE (22:12)
[2020-02-18] MEDS ORDERED: THIAMINE 100 MG/1 ML 2 ML MDV ONE (22:12)
[2020-02-18] MEDS ORDERED: SODIUM BICARBONATE 8.4% 50 MEQ/50 ML VIAL ONE (22:13)
[2020-02-18] MEDS ORDERED: DEXTROSE 5% 1,000 ML IV ONE (22:20)
[2020-02-18] MEDS ORDERED: D5.45NS W/20 MEQ KCL 1,000 ML IV ONE (22:20)
[2020-02-18] MEDS: SODIUM BICARBONATE 150 MEQ in DEXTROSE 5% 1,000 ML IV SCH (22:31)
[2020-02-18] MEDS: MULTIVITAMIN 10 ML, THIAMINE INJ 100 MG, FOLIC ACID INJ 1 MG in D5.45NS W/20 MEQ KCL 1,... IV SCH (22:41)
[2020-02-18] MEDS: SODIUM CHLORIDE FLUSH 0.9% 10 ML SYRINGE IVP PRN ×2 (22:47→22:50)
--- NOTE | 2020-02-18 23:21 | HISTORY & PHYSICAL EXAMINATION ---
DATE OF SERVICE: 02/18/2020 Physician: Linh Levy MD HISTORY OF PRESENT ILLNESS: This is a 74-year-old white male who presented to the emergency room as a Marco A Wu until his friend gave some past medical history, speaking to a mental health social worker who reached out to him. Apparently, the patient is a 74-year-old white male who used to live in [place] with his and the in April of this year. There are several children from whom he is estranged. After the 's , he had increased stress and became homeless. A friend who lives on [facility] offered for this man to come live with him, which the patient did, starting in May or June of this year. He has been going to the [place] for history of a mental disorder. 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 The patient was apparently normal yesterday; however, did not come out of his room for dinner yesterday and when the friend went to see him, the patient was sitting at the edge of his bed and staring at one point on the floor and did not respond when spoken to. The friend assumed he was having a bad day and left him alone. The friend then checked on him at 01:30 overnight, and saw that the patient was sleeping on top of his bed with his clothes on. This morning, when the patient was next checked on by the friend, he was found on the ground and the friend poked him with his cane and he did move slightly, but did not awaken. The friend then called 911 and EMS arrived and found him to be unresponsive, hypothermic with a temperature of 32 degrees centigrade, heart rate was 50, blood pressure was also very low and he was intubated at the scene. Narcan was given and had no effect. In the ER, his heart rate was found to be 50, blood pressure 90/40 and he was started on IV fluids and Levophed drip. He had already been intubated at the scene and was put on a ventilator in the ED. He underwent a CT of the head and C-spine, which were negative. A blood gas showed a pH of 7.01 and other labs were abnormal with a lactic acid of 7.2, total CK of 5250 and creatinine of 2, drug tox screen was negative. The patient is being admitted to the ICU in a coma, hypothermic, in shock, requiring a Levophed drip. PAST MEDICAL HISTORY: Unknown, except the friend offered that the patient goes to the [place] for a psych disorder. 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 The friend denied that the patient has a history of alcohol abuse or smokes anything. He lives with his friend as described above, for the past 8 months. The 2 men each other's temperatures twice a day and have kept to isolation precautions during the COVID pandemic. FAMILY HISTORY: This is not known. REVIEW OF SYSTEMS: This was obtained from the ED provider and SW who spoke to the friend. There is no other review of systems possible since he has never been at this hospital before and he is not communicative in a coma. PHYSICAL EXAM GENERAL: Middle-aged white male who is supine, intubated and did receive one dose of sedative and is currently sedated on the vent. VITAL SIGNS: Blood pressure now is 90/50 on Levophed drip and IV fluids. Heart rate is 90 in sinus rhythm. HEENT: Reveals eyes are closed, ET tube in place. NECK: No JVD in a supine position. CHEST: Clear anteriorly. HEART: Normal heart sounds without murmur. ABDOMEN: Not obese and soft. EXTREMITIES: No clubbing, cyanosis or edema. NEUROLOGIC: Obtunded and sedated/comatose. LABORATORY DATA: Lactic acid 7.2. CK 5250. Creatinine 2.0. Troponin less than 2. Respiratory COVID panel was negative for COVID and other viruses. His drug toxicology screen was negative. Urine was unremarkable. WBC, Hgb and plt count normal. IMAGING: Chest x-ray: No active pulmonary disease and CVP was in place. ET tube was 7 cm above the sandhya. NG tube is coiled in the esophagus. IMPRESSION/DIAGNOSES 1. Coma with unknown etiology. 2. Hypothermia. 3. Shock. 4. Lactic acidosis with no obvious source of infection, white blood count was normal, and he is not a diabetic. 5. Rhabdomyolysis. 6. Acute kidney injury. PLAN: Continue with ICU care, as this patient is in critical status. Begin a warming unit. Continue with aggressive IV replacement of crystalloid fluids and Levophed, for blood pressure support. Obtain an Echo to evaluate the heart structurally. Follow his CMP daily, monitor lactic acid every 3 hours, continue ventilator support and monitor blood gases for management. He may need bicarb, if the next ABG does not show improvement in pH. When he presented to the ICU, his CVP line was pulled out inadvertently during transfer. Therefore, we will request a new CVP placement, Arterial line placement, and NG tube repositioning, from the general surgeon. ET tube will also be adjusted, recheck all line positions by x-ray. Blood cultures were sent from the ER. Currently no obvious source of infection is noted and WBC is normal. No empiric antibiotics have been started yet. A brain MRI is planned to evaluate the coma (today is Thursday evening and we don't have MRI here until Thu morningh). He received 1 dose of sedative, and may need a sedative drip while on the vent. If he does not awaken, after sedation is off, this bodes a poor prognosis. Any additional information about him would be helpful and social workers are attempting to reach the children. CODE STATUS: His wishes are unknown; therefore, he will be a FULL CODE. DEEP VENOUS THROMBOSIS PROPHYLAXIS: SCDs. ATTESTATION: Patient is expected to be discharged or transferred to another facility within 96 hours: Yes. CRITICAL CARE TIME SPENT: 45 min. TD: 02/18/2020 20:10 ASA
[2020-02-19] MEDS: SODIUM CHLORIDE FLUSH 0.9% 10 ML SYRINGE IVP PRN ×6 (00:05→12:03)
[2020-02-19 00:29] LABS: ABG HCO3 6.2 mmol/L (22.0-26.0); ABG PO2 109 mmHg (80-100)
[2020-02-19 00:30] LABS: ABG BASE EXCESS -23.6 mmol/L (-2.0-3.0); ABG OXYGEN SATURATION 96 % (94-98)
[2020-02-19 00:34] LABS: ABG PCO2 25 mmHg (34-45); ABG PH 7.01 (7.35-7.45)
[2020-02-19] MEDS ORDERED: DEXTROSE 5% 250 ML IV ONE (00:58)
[2020-02-19 03:12] LABS: BASOPHILS # (AUTO) 0.1 10^3/uL (0.0-0.1); BASOPHILS % (AUTO) 0.5 %; EOSINOPHILS # (AUTO) 0.1 10^3/uL (0.0-0.7); EOSINOPHILS % (AUTO) 0.3 %; HGB - HEMOGLOBIN 13.9 g/dL (14.0-18.0); LYMPHOCYTES # (AUTO) 1.4 10^3/uL (1.5-3.5); LYMPHOCYTES % (AUTO) 7.6 %; MEAN CORPUSCULAR HEMOGLOBIN 31.2 pg (27.0-31.0); MEAN CORPUSCULAR VOLUME 97.3 fL (80.0-94.0); MEAN PLATELET VOLUME 9.9 fL (7.4-11.4); MONOCYTES # (AUTO) 0.8 10^3/uL (0.0-1.0); MONOCYTES % (AUTO) 4.7 %; NEUTROPHILS # (AUTO) 15.4 10^3/uL (1.5-6.6); PLT - PLATELET COUNT 337 10^3/uL (130-450); RED BLOOD COUNT 4.46 10^6/uL (4.70-6.10); RED CELL DISTRIBUTION WIDTH 12.7 % (12.0-15.0); WHITE BLOOD COUNT 17.9 x10^3/uL (4.8-10.8)
[2020-02-19] MEDS: PROPOFOL 500 MG/50 ML 500 MG/50 ML VIAL IV SCH ×3 (03:20→15:25)
[2020-02-19 03:25] LABS: ABG BASE EXCESS -23.5 mmol/L (-2.0-3.0); ABG HCO3 6.1 mmol/L (22.0-26.0); ABG OXYGEN SATURATION 97 % (94-98); ABG PO2 109 mmHg (80-100)
[2020-02-19 03:33] LABS: ALBUMIN 2.7 g/dL (3.2-5.5); ALBUMIN/GLOBULIN RATIO 0.8 (1.0-2.2); BILIRUBIN,TOTAL 1.7 mg/dL (0.2-1.0); TOTAL PROTEIN 5.9 g/dL (6.7-8.2)
[2020-02-19 03:35] LABS: CALCIUM 6.3 mg/dL (8.5-10.3)
[2020-02-19 03:35] LABS: ABG PCO2 24 mmHg (34-45); ABG PH 7.02 (7.35-7.45); ABG TCO2 6.8 MMOL/L (21.0-29.0)
[2020-02-19] MEDS ORDERED: INSULIN REGULAR HUMAN 300 UNIT/3 ML VIAL IVP ONE (03:42)
[2020-02-19] MEDS ORDERED: DEXTROSE 10% 250 ML IV STA (03:42)
[2020-02-19] MEDS ORDERED: CALCIUM GLUCONATE 2,000 MG in SODIUM CHLORIDE 0.9% 100ML 100 ML IV ONE (03:43)
[2020-02-19] MEDS ORDERED: ALBUTEROL NEB 2.5 MG/3 ML INH ONE (03:45)
[2020-02-19] MEDS ORDERED: CEFEPIME 2 GM in SODIUM CHLORIDE 0.9% MINIBAG 100 ML IV SCH ×2 (04:00→09:00)
[2020-02-19] MEDS ORDERED: SODIUM CHLORIDE 0.9% 500 ML IV ONE (04:38)
[2020-02-19] MEDS ORDERED: VANCOMYCIN INJ 1.25 GM in SODIUM CHLORIDE 0.9% 250 ML IV SCH (05:00)
[2020-02-19] MEDS: metroNIDAZOLE 500 MG/100 ML 500 MG/100 ML BAG IV SCH ×2 (05:01→12:08)
[2020-02-19 07:36] LABS: CREATININE 3.4 mg/dL (0.6-1.2)
[2020-02-19 07:37] LABS: ABG BASE EXCESS -26.3 mmol/L (-2.0-3.0); ABG HCO3 5.4 mmol/L (22.0-26.0); ABG OXYGEN SATURATION 96 % (94-98); ABG PCO2 27 mmHg (34-45); ABG PO2 105 mmHg (80-100)
[2020-02-19 07:40] LABS: ABG PH 6.92 (7.35-7.45); ABG TCO2 6.2 MMOL/L (21.0-29.0)
[2020-02-19 07:41] LABS: CALCIUM 6.4 mg/dL (8.5-10.3)
[2020-02-19] MEDS ORDERED: VANCOMYCIN INJ 1 GM in SODIUM CHLORIDE 0.9% 250 ML IV SCH (08:00)
[2020-02-19] MEDS ORDERED: MULTIVITAMIN 10 ML, THIAMINE INJ 100 MG, FOLIC ACID INJ 1 MG in D5.45NS W/20 MEQ KCL 1,... IV SCH (09:00)
--- NOTE | 2020-02-19 09:01 | CT Report ---
PROCEDURE: Abdomen/Pelvis WO INDICATIONS: sepsis, unknown site. ?abscess, ischemia TECHNIQUE: Noncontrast 5 mm thick sections acquired from the diaphragms to the symphysis. 5 mm coronal and sagi ttal reformats were then performed. For radiation dose reduction, the following was used: automated exposure control, adjustment of mA and/or kV according to patient size. COMPARISON: None. FINDINGS: Image quality: Excellent. ABDOMEN: Lung bases: There is a small right-sided pleural effusion. Dependent consolidation is seen at the berenice g bases. Heart size is normal. Solid organs: Liver and spleen are normal in size. Gallbladder wall does not appear thickened. P ancreas is normal in contours. No adrenal nodules. Kidneys are normal in size, without hydronephros is or nephrolithiasis. Peritoneum and bowel: The tip of nasogastric tube is seen within the mid stomach. Generalized wall t hickening can be seen of the colon. Mild surrounding inflammatory changes are seen. Prominent loops o f small bowel are seen, which measure up to 2.8 cm. Small amount of fluid can be seen along the leave s of the mesentery, with trace fluid layering dependently within the pelvis. No free fluid or air. Nodes and vessels: No retroperitoneal or mesenteric adenopathy by size criteria. Aorta and inferior vena cava are normal in caliber. Miscellaneous: No ventral hernias. PELVIS: Genitourinary: A Thomas catheter is seen, decompressing the urinary bladder. Miscellaneous: No inguinal adenopathy. Bilateral fat-containing inguinal hernias are seen. A right femoral artery line is seen, with the tip within the right external iliac artery. Bones: No suspicious bony lesions. No vertebral body compression fractures. Focal L4-L5 and L5-S1 degenerative change is seen. Milder degenerative changes are seen elsewhere. Mild levoconvex scoliot ic curvature is seen. IMPRESSION: Generalized wall thickening can be seen in the colon and prominent loops of small bowel are seen. The re is a small amount of free fluid along the leaves of the mesentery and layering dependently within the pelvis Colitis/enteritis is suspected. To the limits of this study performed without IV contrast, no findings of an abscess can be seen. Depending consolidation is seen at the lung bases. Differential diagnosis includes atelectasis and de pendent infiltrates. Please consider aspiration pneumonia. Small right-sided pleural effusion. Right groin line, with the tip seen within the right external iliac artery. Incidental note is made of: Thomas catheter Bilateral fat-containing inguinal hernias Focal lower lumbar spine degenerative change Levoconvex scoliotic curvature Reviewed by: Chris Huggins MD on 02/19/2020 7:59 AM [facility] Approved by: Chris Huggins MD on 02/19/2020 7:59 AM [facility] Station ID: [id number]
--- NOTE | 2020-02-19 09:08 | PROVIDER PROGRESS NOTE ---
Cigar Bander Note - Cigar Bander Note Cigar Bander Note: The patient's blood pressure earlier in the night stayed low with mean arterial pressure of 58 as a result Levophed was titrated up and maxed. The patient was given a total of 2 L boluses of normal saline in the course of the night. A banana bag was ordered at 100 mils per hour. Patient's ABG earlier in the evening around 8 PM came back with a pH of 7.05, PCO2 26, bicarb 7.0, PO2 105. As a result the patient was started on a bicarbonate drip at 100 mils an hour. Throughout the course of the night the patient was on at least a total of 300 mils of fluids an hour. This was in addition to the 2 L of normal saline boluses given. The patient had serial ABGs done at 4-hour intervals through the cause of the night with his pH continuing to decrease. The last pH at 7:24 am on 02/19/20 was 6.92, PCO2 27, PO2 105 and bicarb 5.4. Throughout the night the patient's lactic acid stayed in the range of 7.0-8.6 despite the bicarbonate drip. Repeat CBC showed a spike of the patient's white blood cell count from 8-17. The patient was started on vancomycin, cefepime and Flagyl. The patient's creatinine worsened from 2.0-3.4. Despite a total of approximately 5 L of IV fluids given there was only reported urine output of 565. I spoke to the patient's son by name Bry Jones at the beginning and the end of the night and updated him on the patient's clinical condition. Diagnosis Septic shock: Infectious source not yet identified but a GI origin suspected. Blood cultures had been drawn earlier. Patient is on vancomycin, cefepime and Flagyl. Patient's lactic acid is 8.2. Acute kidney injury: Likely secondary to ATN Patient is currently receiving a total of approximately 300 mils of fluids an hour. These include a banana bag at 100 mils an hour,A sodium bicarbonate solution at 100 mils an hour, Levophed, and the above-mentioned IV antibiotics. Hyperkalemia: The patient's potassium was 7.2. The patient was given insulin 10 units IV, albuterol nebulizer 10 mg And 2 g of calcium gluconate. Potassium recheck was 5.5. Plan will be to repeat the patient's BMP, CBC, lactic acid and ABG at noon. Elevated liver function tests: Likely secondary to shock liver. Metabolic acidosis: This is likely secondary to septic shock. Patient is receiving IV antibiotics. Patient is receiving IV hydration and is also on sodium bicarbonate drip. A total of 90 minutes of critical care time was spent on this patient's care
[2020-02-19] MEDS: SODIUM BICARBONATE 150 MEQ in DEXTROSE 5% 1,000 ML IV SCH (10:34)
[2020-02-19] MEDS ORDERED: PANTOPRAZOLE 40 MG VIAL IV SCH (11:00)
[2020-02-19] MEDS ORDERED: DEXTROSE 5%-0.9% NACL 1,000 ML IV SCH (11:10)
[2020-02-19 11:27] LABS: ABG BASE EXCESS -26.1 mmol/L (-2.0-3.0); ABG HCO3 5.1 mmol/L (22.0-26.0); ABG OXYGEN SATURATION 95 % (94-98); ABG PCO2 24 mmHg (34-45); ABG PH 6.94 (7.35-7.45); ABG PO2 97 mmHg (80-100); ABG TCO2 5.9 MMOL/L (21.0-29.0)
--- NOTE | 2020-02-19 11:30 | PHARMACY PROGRESS NOTE ---
- Therapy Status Vancomycin regimen day #: 1 Therapy status: Awaiting steady state Basis for treatment: Empirical Trough goal: 15-20 Concurrent antibiotics: CEFEPIME 1G Q12H (RENAL DOSE) + FLAGYL - AUGUST Risk Risk level for Acute Kidney Injury: Moderate Acute Kidney Injury risk factors: Baseline CrCl <50, Goal trough >15, Admission to ICU, Sepsis - Monitoring and Recommendation Clinical response to treatment: I&O Previous 24 hours 02/17/20 02/18/20 02/19/20 23:59 23:59 23:59 Intake Total 5009.982 4698.373 Output Total 565 575 Balance 4444.982 4123.373 Lab Results 02/19/20 02/19/20 02/18/20 07:15 03:00 15:30 BUN 35 H 33 H 26 H Creatinine 3.4 H 3.0 H 2.0 H Estimated GFR (MDRD) 18 L 21 L Monitoring plan: Daily serum creatinine, Draw trough early (02/18 VANCOMYCIN INITIATED - SEPTIC SHOCK 2250MG LOADING DOSE X1 MAINTENACE DOSE: 1250 Q36H S CR: 3.4 MG/DL, CRCL: ~22 ML/MIN (ADJ.BW) T1/2: ~31H TROUGH SCHEDULED FOR 02/20 @ 0430 (BEFORE 3RD DOSE))
[2020-02-19 11:41] LABS: BASOPHILS % (AUTO) 0.5 %; EOSINOPHILS % (AUTO) 2.3 %; HGB - HEMOGLOBIN 13.9 g/dL (14.0-18.0); LYMPHOCYTES % (AUTO) 6.5 %; MEAN CORPUSCULAR HEMOGLOBIN 31.7 pg (27.0-31.0); MEAN CORPUSCULAR HGB CONC 32.3 g/dL (32.0-36.0); MEAN CORPUSCULAR VOLUME 97.9 fL (80.0-94.0); MEAN PLATELET VOLUME 10.2 fL (7.4-11.4); MONOCYTES % (AUTO) 2.6 %; NEUTROPHILS % (AUTO) 87.3 %; PLT - PLATELET COUNT 259 10^3/uL (130-450); RED BLOOD COUNT 4.39 10^6/uL (4.70-6.10); RED CELL DISTRIBUTION WIDTH 12.7 % (12.0-15.0); WHITE BLOOD COUNT 17.5 x10^3/uL (4.8-10.8)
[2020-02-19 11:44] LABS: ABNORMAL LYMPHS % (MANUAL) 0 %
[2020-02-19 11:56] LABS: ALBUMIN 2.4 g/dL (3.2-5.5); ALBUMIN/GLOBULIN RATIO 0.8 (1.0-2.2); BILIRUBIN,TOTAL 2.1 mg/dL (0.2-1.0); CREATININE 3.9 mg/dL (0.6-1.2); TOTAL PROTEIN 5.4 g/dL (6.7-8.2)
[2020-02-19 11:57] LABS: CALCIUM 6.5 mg/dL (8.5-10.3)
[2020-02-19 12:08] LABS: BAND NEUTROPHILS % (MANUAL) 5 %; DIFFERENTIAL COMMENT MANUAL DIFFERENTIAL; LYMPHOCYTES # (MANUAL) 1.6 10^3/uL (1.5-3.5); LYMPHOCYTES % (MANUAL) 9 %; MONOCYTES # (MANUAL) 0.9 10^3/uL (0.0-1.0); PLATELET ESTIMATE, MANUAL NORMAL (130-450,000) (NORMAL); PLATELET MORPHOLOGY NORMAL APPEARANCE (NORMAL); RBC MORPHOLOGY (MULTIPLE) 3+ BURR CELLS (NORMAL)
[2020-02-19] MEDS: MULTIVITAMIN 10 ML, THIAMINE INJ 100 MG, FOLIC ACID INJ 1 MG in D5.45NS W/20 MEQ KCL 1,... IV SCH (12:22)
[2020-02-19] MEDS ORDERED: DOBUTamine 500 MG/250 ML 500 MG/250 ML BAG IV SCH (14:00)
[2020-02-19 16:00] VITALS: BP 81/41
[2020-02-19] MEDS ORDERED: CEFEPIME 1 GM in SODIUM CHLORIDE 0.9% MINIBAG 100 ML IV SCH (16:00)
[2020-02-19] MEDS ORDERED: MORPHINE 2 MG/ML CARPUJECT IVP ONE ×2 (16:15→16:32)
--- NOTE | 2020-02-19 16:48 | Discharge Plan ---
Discharge Plan Problem Reviewed?: Yes Disposition: 20 Condition: Critical No Smoking: If you smoke, Please STOP! Call for help.
--- NOTE | 2020-02-19 16:53 | DISCHARGE SUMMARY ---
Discharge Summary Admit Date: 02/18/20 Discharge Date: 02/19/20 Discharging Provider: Dr Linh Levy Primary Care Provider: [facility] Discharge Disposition: 20 - HPI History of Present Illness: This is a 74-year-old white male who was brought to the ER as a Marco A Wu. Then information became available that the patient has a history of being homeless then started living on [facility] with his friend from their days. The patient may possibly have a history of psychiatric disorder for which she is seen at the [facility]. He was withdrawn and staring into space yesterday then the friend saw him sleeping on top of his bed with his close on and did not disturb him. The next time the friend checked on him the patient was on the floor in his close and would not arouse to touch. 911 was called and he was intubated at the scene, had no improvement with Narcan. In the ER he was found to be acido tic with pHG of 7.0, with high lactic acid level of 7, normal white blood count, elevated CK of greater than 5000 and elevated creatinine of 2. He was in shock with systolic blood pressure 70, heart rate was 50, he was hypothermic with temperature of [address] head was unremarkable. The patient was on the ventilator, admitted to the ICU for management of shock, hypothermia, multiple electrolyte abnormalities, rhabdomyolysis and AUGUST, lactic acidosis and metabolic acidosis. - HOSPITAL COURSE Hospital Course: 1) Hypothermia The patient was placed on a warming unit [facility], his temperature slowly improved to 36.4 degrees C. 2) Coma Narcan had no effect at the scene. Following that, he was put on iv sedation since he needed to be on the vent. His head CT was unremarkable and drug tox screen was neg at admission. We planned to do brain MRI, but he before that could be done. 3) Metabolic acidosis: His first ABG showed a pH of 7. This was possibly secondary to septic shock. Patient was receiving IV hydration and also needed a sodium bicarbonate drip. Despite that, his serum pH worsened to 6.9 the following day. This suggested a possible toxic ingestion. 4) Septic shock: His lactic acid level was 7 at presentation, WBC was 8 which leilani to 17.9. CXR and U/A were normal. Blood cultures were drawn and he was started empirically on vancomycin, cefepime and Flagyl. Infectious source was not identified but a GI origin suspected. A CT abdomen/pelvis was done that showed possible colitis/enteritis, and dependent atelectasis versus infiltrate of both lung bases seen. Patient's lactic acid level continued to climb, to 8.2. Etiology remained unclear. Levophed was started in the ER and MAP of 60 mmHg was the target. His blood pressure continued to drop. Levophed was maximized, iv fluid rate increased, and Dobutamine was added. A STAT Echo was done that showed underfilled LV with normal LV contractility. His family (3 children) were reached and the critical situation was explained. The children all gave d irection to extubate him and they instructed he be a DNR. 5) Rhabdomyolysis The CK was 5200, related to being found down. Treated with aggressive iv hydration. 6) Acute kidney injury: Likely ATN from shock in addition to AUGUST from rhabdomyolysis. The creat did not improve, continued to worsen from 2>> 3>> 3.4>> 3.9. 7) Hyperkalemia: Related to AUGUST. The patient's potassium leilani to 7.2. He was given insulin IV push, albuterol nebulizer and calcium gluconate. K improved to 5.5. 8) Elevated liver function tests: Likely secondary to shock liver vs from possible unknown toxic substance ingest ion. 9) On mechanically-assisted ventilator His family (3 children) were reached and the critical situation was explained. The children all gave direction to extubate him and DNR was requested. He was kept on the Propofol drip, given iv Morphine, suctioned and then extubated. He survived for 15 min, then . - ALLERGIES Allergies/Adverse Reactions: Allergies Allergy/AdvReac Type Severity Reaction Status Date / Time Unable to Assess Allergy Verified 02/18/20 15:24 - LABS Result Diagrams: 02/19/20 11:31 02/19/20 11:31
[2020-02-20] MEDS ORDERED: VANCOMYCIN INJ 1.25 GM in SODIUM CHLORIDE 0.9% 250 ML IV SCH (17:30)
== END 2020-02-19 16:46 | disposition expired | DRG 871 ==
LOC: EDBD → ED 15:06 → ICU 17:40
PROVIDERS: ADMIT Internal Medicine; ATTEND Internal Medicine
PROC: 03HC03Z Insertion of Infusion Device into Left Radial Artery, Open Approach (ICD-10-PCS; principal; 2020-02-18)
PROC: 04HK03Z Insertion of Infusion Device into Right Femoral Artery, Open Approach (ICD-10-PCS; 2020-02-18)
PROC: 05HM33Z Insertion of Infusion Device into Right Internal Jugular Vein, Percutaneous Approach (ICD-10-PCS; 2020-02-18)
DX: J96.01 Acute respiratory failure with hypoxia (principal); A41.9 Sepsis, unspecified organism; R65.21 Severe sepsis with septic shock; N17.0 Acute kidney failure with tubular necrosis; R40.2431 Glasgow coma scale score 3-8, in the field [EMT or ambulance]; Z20.828 Contact with and (suspected) exposure to other viral communicable diseases; R40.20 Unspecified coma; E87.2 Acidosis; M62.82 Rhabdomyolysis; T68.XXXA Hypothermia, initial encounter; E87.5 Hyperkalemia; R79.89 Other specified abnormal findings of blood chemistry; Z66 Do not resuscitate
CPT/HCPCS: 36415; 36556; 36600; 51702; 70450; 71045; 72125; 74176; 80048; 80053; 81001; 82550; 82803; 83605; 83735; 84443; 84484; 85025; 85610; 87040; 87150; 87631; 93005; 93306; 94002; 94003; 94640; 96360; 96361; 99291; J1250; J1815; J3370; J3411; J3490; J7120; 0202U; 80306; 80320; 81003; 87086; 94770